=== PATIENT | male | born 1940 | race African-American/Black ===

== ENCOUNTER 2024-01-06 00:58 | Outpatient (CLI) | payer MEDICARE, SELFPAY | END 2024-01-06 00:59 | disposition home or self-care (01) | LOC: AMB 01-22 19:19 | PROVIDERS: PCP Physician Assistant; Visit Provider Emergency Medicine | DX: L89.159 Pressure ulcer of sacral region, unspecified stage (principal) | CPT/HCPCS: A0425; A0434 ==